=== PATIENT | male | born 1985 | race Caucasian/White ===

== ENCOUNTER 2017-11-18 13:23 | Emergency (ER) | payer OTHER ==
[~2017-11-18] VITALS: Ht 177.8 cm; Wt 102.3 kg
[2017-11-18] MEDS ORDERED: NORCO 5/3251 TABLET PO (14:52)
[2017-11-18 15:29] VITALS: BP 101/60
== END 2017-11-18 15:39 | disposition home or self-care (01) ==
LOC: EME 13:23
PROC: 2W3RX1Z Immobilization of Left Lower Leg using Splint (ICD-10-PCS; principal; 2017-11-18)
DX: S82.302A Unspecified fracture of lower end of left tibia, initial encounter for closed fracture (principal); W01.0XXA Fall on same level from slipping, tripping and stumbling without subsequent striking against object, initial encounter; Y93.01 Activity, walking, marching and hiking; R56.9 Unspecified convulsions
CPT/HCPCS: 73610; 99281; 99284